=== PATIENT | male | born 1965 | race Caucasian/White ===

== ENCOUNTER → 2018-11-26 | Outpatient (CLI) | payer MEDICARE, OTHER ==
[~2018-11-26] MED LIST: BUDE10.22 IH; CHOL200059 PO; LAMO100 PO; LEVO100 PO; LEVO75 PO; LITH300CRT PO; LITH450CRT PO; MIRT15 PO; OLAN10TA3 PO; VENL-68 PO
== END | disposition home or self-care (01) ==
LOC: LABMN 09:35
PROVIDERS: ATTEND Psychiatry & Neurology Psychiatry
DX: F25.0 Schizoaffective disorder, bipolar type (principal); F31.9 Bipolar disorder, unspecified